=== PATIENT | male | born 1985 ===

== ENCOUNTER 2017-11-21 20:16 | Inpatient (IN) | payer SELFPAY ==
[2017-11-21 20:55] LABS: #Eosinphils 0.1 thou/uL (0.0-0.7); #Lymphocytes 1.7 thou/uL (1.20-3.40); #Monocytes 0.6 thou/uL (0.11-0.59); #Neutrophils 3.4 thou/uL (1.40-6.50); %Basophils 0.6 % (0.0-1.0); %Eosinophils 1.9 % (0.0-10.0); %Lymphocytes 29.5 % (21.0-51.0); %Monocytes 9.7 % (0.0-10.0); %Neutrophils 58.3 % (42.0-75.0); Mean Corpuscular HGB CONC 34.9 g/dL (32.0-36.0); Mean Corpuscular Hemoglobin 31.1 pg (27.0-31.0); Mean Corpuscular Volume 89.1 fl (80.0-94.0); Mean Platelet Volume 6.5 fL (7.4-10.4); Platelet Count 287 thou/uL (130-400); RBC Distribution Width 11.9 % (11.5-14.5); Red Blood Cell (RBC) Count 4.84 mill/uL (4.70-6.10); White Blood Cell (WBC) Count 5.8 thou/uL (4.8-10.8)
--- NOTE | 2017-11-21 21:23 | RAD ---
ONE VIEW CHEST: 11/21/17 HISTORY: New onset seizure. COMPARISON: None. FINDINGS: Diminished lung volumes, likely due to poor inspiratory effort. No consolidation or masses. No pneumo thorax or osseous abnormalities. IMPRESSION: No acute cardiopulmonary process. POS: [facility]
[2017-11-21 21:26] LABS: ALT (SGPT) 32 U/L (8-55); AST (SGOT) 21 U/L (5-34); Albumin 4.5 g/dL (3.5-5.0); Alkaline Phosphatase 76 U/L (40-150); Anion Gap 14 mmol/L (10-20); BUN (Urea Nitrogen) 9 mg/dL (8.9-20.6); Bilirubin, Total 0.3 mg/dL (0.2-1.2); Calc. Creatinine Clearance 0 mL/min (70-130); Calcium 9.5 mg/dL (7.8-10.44); Carbon Dioxide 26 mmol/L (22-29); Chloride 102 mmol/L (98-107); Estimated GFR-MDRD Greater than 90; Globulin 3.2 g/dL (2.4-3.5); Glucose 101 mg/dL (70-105); Potassium 3.9 mmol/L (3.5-5.1); Protein, Total 7.7 g/dL (6.0-8.3); Sodium 138 mmol/L (136-145)
[2017-11-21 22:25] LABS: Amphetamine Not Detected (NotDetected); Barbiturates Screen Not Detected (NotDetected); Benzodiazepine Screen Not Detected (NotDetected); Cocaine Metabolite Screen Not Detected (NotDetected); Medtox Control Line Valid? VALID (VALID); Medtox Reader # READER 1; Methadone Not Detected (NotDetected); Methamphetamine Not Detected (NotDetected); Opiate Screen Not Detected (NotDetected); Oxycodone Screen Not Detected (NotDetected); Phencyclidine (PCP) Not Detected (NotDetected); THC/Cannabinoid Screen Not Detected (NotDetected); Tricyclic Screen Not Detected (NotDetected)
--- NOTE | 2017-11-21 22:39 | CT ---
NONCONTRAST HEAD CT: 11/21/17 HISTORY: New onset seizure. COMPARISON: None. TECHNIQUE: Noncontrast head CT is performed from skull base to skull vertex. FINDINGS: No parenchymal hemorrhage. No extra-axial hematoma. No midline shift. Basilar cisterns are patent. Brain volume, age appropriate. Cortical aragon-white matter differentiation is preserved. Ventricle and sulci are patent and symmetric. Adequate aeration of the sinuses and mastoid air cells. Calvarium is intact. IMPRESSION: No acute intracranial process. Given that this is the patient's reported first seizure, brain MRI is recommended for further interrogation. POS: [facility]
[2017-11-22 01:17] VITALS: BP 115/56; TEMP 98.9
[2017-11-22 01:21] VITALS: BMI 26.9
--- NOTE | 2018-01-20 16:22 | EKG ---
Test Reason : SZ Blood Pressure : / mmHG Vent. Rate : 088 BPM Atrial Rate : 088 BPM P-R Int : 162 ms QRS Dur : 090 ms QT Int : 356 ms P-R-T Axes : 033 023 023 degrees QTc Int : 430 ms Normal sinus rhythm Early repolarization Normal ECG Confirmed by HIEU Jacobo, RICCO ([id number]), acquisitions editor CUBA PHAM ([id number] on 01/20/2018 4:22:35 PM Referred By: HIEU Confirmed By:RICCO HAGEN M.D.
== END 2017-11-22 02:48 | disposition left against medical advice (07) | DRG 101 ==
LOC: ERS 20:16 → 2NO 23:15
PROVIDERS: ADMIT Internal Medicine; ATTEND Internal Medicine
DX: R56.9 Unspecified convulsions (principal)
CPT/HCPCS: 36415; 70450; 71045; 80053; 80306; 84145; 84443; 85025; 93005